=== PATIENT | female | born 1970 | race American Indian/Alaskan Native ===

== ENCOUNTER 2017-12-29 10:16 | Outpatient (CLI) | payer MEDICARE ==
--- NOTE | 2017-12-29 13:55 | Mammography Report ---
BILATERAL DIGITAL DIAGNOSTIC MAMMOGRAM with CAD and RIGHT BREAST ULTRASOUND: 12/29/17 10:30:00 CLINICAL: A palpable right breast lump for one year. COMPARISON:04/04/16 FINDINGS: The breasts are mostly fatty with a few scattered bilateral fibroglandular densities.No mass, architectural distortion or suspicious calcifications . No mammographic finding at a right lower inner periareolar palpable marker where she describes a lump. Ultrasound of the right breast was performed in the area where she describes a lump and demonstrated normal fibroglandular structures. No mass, cyst or shadowing. A tiny subareolar cyst at 5 o'clock measures 3 x 2 x 3 mm and is not correlate with what she feels. IMPRESSION: Negative mammogram and negative right breast ultrasound in the setting of a palpable lump felt by the patient. BI-RADS CATEGORY: 3 - - Probably Benign RECOMMENDATION: Clinical follow-up of the palpable area and a followup right mammogram and ultrasound if needed in six months. ACR BI-RADS MAMMOGRAPHIC CODES: 0 = Needs additional imaging evaluation; 1 = Negative; 2 = Benign; 3 = Probably benign; 4 = Suspicious; 5 = Malignant; 6 = Known biopsy-proven malignancy COMMENT: 1. Dense breast tissue, i.e., adenosis, fibrocystic changes, etc., may obscure an underlying neoplasm. 2. Approximately 10% of cancers are not detected with mammography. 3. A negative mammography report should not delay biopsy if a clinically suspicious mass is present. COMMENT: Patient follow-up letters are generated by our [employer] application.
== END 2017-12-29 10:17 | disposition home or self-care (01) ==
LOC: MAMMO 10:16
PROVIDERS: ATTEND Advanced Practice Midwife
DX: Z12.39 Encounter for other screening for malignant neoplasm of breast (principal); N60.01 Solitary cyst of right breast
CPT/HCPCS: 77066

== ENCOUNTER 2019-02-02 10:20 | Outpatient (CLI) | payer MEDICARE ==
--- NOTE | 2019-02-03 09:34 | Mammography Report ---
BILATERAL DIGITAL SCREENING MAMMOGRAM WITH CAD INDICATION: Screening. COMPARISONS: 04/04/2016 FINDINGS: Craniocaudal and mediolateral oblique views of both breasts were obtained using 2-D digital acquisition. In addition to standard review, the examination was analyzed for possible abnormalities using a computer-assisted detection device (iCAD). There are scattered areas of fibroglandular density. A left asymmetry with architectural distortion on the CC view requires additional imaging. No mass or suspicious calcifications. The right breast is negative. IMPRESSION: Left asymmetry and architectural distortion requiring additional imaging. Recommend recall for a left CC spot magnification view and left breast ultrasound if needed. BI-RADS CATEGORY 0: INCOMPLETE - NEED ADDITIONAL IMAGING EVALUATION AND/OR PRIOR MAMMOGRAMS FOR COMP ARISON Information is entered into a reminder system for a target due date for the next mammogram. The resul ts and recommendations were sent to the patient by mail. Signer Name: Desean Nixon MD Signed: 02/03/2019 9:30 AM Workstation Name: [id number]
== END 2019-02-02 10:21 | disposition home or self-care (01) ==
LOC: MAMMO 10:20
PROVIDERS: ATTEND Advanced Practice Midwife
DX: Z12.31 Encounter for screening mammogram for malignant neoplasm of breast (principal)
CPT/HCPCS: 77067

== ENCOUNTER 2019-02-12 10:45 | Outpatient (CLI) | payer MEDICARE ==
--- NOTE | 2019-02-12 13:58 | Ultrasound Report ---
LEFT DIGITAL DIAGNOSTIC MAMMOGRAM WITH CAD 02/12/2019 LEFT LIMITED BREAST ULTRASOUND INDICATION: Callback from abnormal screening mammogram. TECHNIQUE: Digital right mammographic imaging was performed. Magnification views were obtained. Limi evan ultrasound was performed. This examination was interpreted with the benefit of Computer-Aided Det ection (CAD) analysis. COMPARISON: Prior mammogram 02/02/2019, 12/29/2017, and 04/04/2016 FINDINGS: Breast Density: There are scattered areas of fibroglandular density. There is no evidence of dominant mass, suspicious calcifications or architectural distortion in the l eft breast. Spot magnification views of the area of interest in the lateral left breast shows no pers istent asymmetry or distortion. The appearance of the mammogram is unchanged compared to the oldest m ammogram review of all, 2015. Ultrasound Findings: Targeted ultrasound evaluation was performed of the area of interest. No evide nce for abnormality within the left lateral breast. IMPRESSION: No evidence of malignancy. Patient may return to annual screening mammography. BI-RADS Category 2: Benign. Recommend routine screening mammography in one year A "normal" or negative report should not discourage follow up or biopsy of a clinically significant f inding. A written summary of these findings will be mailed to the patient. The patient will be entered into a mammography reporting system which will generate a reminder letter for the patient's next appointmen t at the appropriate interval. FURTHER INFORMATION: According to the [employer], yearly mammograms are recommend ed starting at age 40 and continuing as long as a woman is in good health. Breast MRI is recommended for women with an approximately 20-25% or greater lifetime risk of breast cancer, including women wi th a strong family history of breast or ovarian cancer and women who have been treated for Hodgkin's disease. Signer Name: Britt Becerra MD Signed: 02/12/2019 1:54 PM Workstation Name: [id number]
== END 2019-02-12 10:46 | disposition home or self-care (01) ==
LOC: MAMMO 10:45
PROVIDERS: ATTEND Advanced Practice Midwife
DX: N60.01 Solitary cyst of right breast (principal)
CPT/HCPCS: 77066

== ENCOUNTER 2021-08-23 11:10 | Outpatient (CLI) | payer MEDICARE | END 2021-08-23 11:11 | disposition home or self-care (01) | LOC: SPVWC 11:10 | PROVIDERS: ATTEND Advanced Practice Midwife | DX: Z12.31 Encounter for screening mammogram for malignant neoplasm of breast (principal) | CPT/HCPCS: 77063; 77067 ==